=== PATIENT | male | born 1975 | race Caucasian/White ===

== ENCOUNTER 2020-05-30 13:29 | Emergency (ER) | payer OTHER, SELFPAY ==
[~2020-05-30] VITALS: Ht 182.9 cm; Wt 79.5 kg
[2020-05-30 13:40] VITALS: BP 137/67
[2020-05-30 13:51] LABS: BASOPHILS # (AUTO) 0.03 x10^3/uL (0-0.1); BASOPHILS % (AUTO) 0 % (0-1); EOSINOPHILS # (AUTO) 0.08 x10^3/uL (0-0.4); EOSINOPHILS % (AUTO) 1 % (1-7); LYMPHOCYTES # (AUTO) 1.99 x10^3/uL (1-3.4); LYMPHOCYTES % (AUTO) 20 % (22-44); MD NO; MEAN CORPUSCULAR HEMOGLOBIN 33.9 pg (27.5-34.5); MEAN CORPUSCULAR HGB CONC 34.2 g/dL (33.2-36.2); MEAN PLATELET VOLUME 8.1 fL (7.4-10.4); MONOCYTES # (AUTO) 0.75 x10^3/uL (0.2-0.8); MONOCYTES % (AUTO) 7 % (2-9); NEUTROPHILS # (AUTO) 7.33 x10^3/uL (1.8-6.8); NEUTROPHILS % (AUTO) 72 % (42-75); PLATELET COUNT 267 x10^3/uL (130-400); RED CELL DISTRIBUTION WIDTH 13.2 % (9.4-14.8)
[2020-05-30 14:03] LABS: ALANINE AMINOTRANSFERASE 25 U/L (12-78); ALBUMIN 3.6 g/dL (3.4-5.0); ANION GAP 6 mmol/L (5-15); CALCIUM 8.5 mg/dL (8.5-10.1); CHLORIDE 106 mmol/L (98-107); SALICYLATE LEVEL 4.9 mg/dL (2.8-20.0)
[2020-05-30 14:05] LABS: ALKALINE PHOSPHATASE 72 U/L (45-117); BILIRUBIN,TOTAL 0.6 mg/dL (0.2-1.0); TOTAL PROTEIN 7.2 g/dL (6.4-8.2)
[2020-05-30 14:18] LABS: AMPHETAMINE SCREEN, URINE Negative (Negative); BARBITURATE SCREEN, URINE Negative (Negative); BENZODIAZEPINE SCREEN, URINE Negative (Negative); CANNABINOID SCREEN, URINE Positive (Negative); OPIATE SCREEN, URINE Negative (Negative)
[2020-05-30 14:20] LABS: COCAINE SCREEN, URINE Negative (Negative); METHADONE SCREEN, URINE Negative (Negative)
--- NOTE | 2020-05-30 14:34 | NUR ---
BREAK RN: PT IN ROOM WATCHING TV. ROOM SECURE. ONE BAG LOCKED UP. SITTER AT DOOR. NO ACUTE DISTRESS NOTED. WILL CONTINUE TO MONITOR WHILE PRIMARY RN ERIC IS ON BREAK.
--- NOTE | 2020-05-30 15:15 | NUR ---
REPORT GIVEN TO PENELOPE REYES
--- NOTE | 2020-05-30 15:18 | NUR ---
PHCHY MACHINE SPECIALIST AT BEDSIDE.
== END 2020-05-30 15:56 | disposition home or self-care (01) ==
LOC: ED 13:43
DX: F22 Delusional disorders (principal); F17.210 Nicotine dependence, cigarettes, uncomplicated
CPT/HCPCS: 36415; 80053; 80307; 85025; 99284

== ENCOUNTER 2020-11-16 09:41 | Emergency (ER) | payer MEDICAID ==
[~2020-11-16] VITALS: Ht 175.3 cm; Wt 80.0 kg
[2020-11-16 09:53] VITALS: BP 145/89
--- NOTE | 2020-11-16 10:09 | NUR ---
DC FROM TRIAGE
== END 2020-11-16 10:14 | disposition home or self-care (01) ==
LOC: ED 10:06
DX: B85.1 Pediculosis due to Pediculus humanus corporis (principal)
CPT/HCPCS: 99283

== ENCOUNTER 2021-03-09 12:32 | Emergency (ER) | payer MEDICAID ==
[~2021-03-09] VITALS: Ht 182.9 cm; Wt 75.1 kg
[2021-03-09] MEDS ORDERED: LIDOCAINE 1%, 10ML INFIL ONE (13:00)
--- NOTE | 2021-03-09 15:45 | NUR ---
PT WALKED BACK TO ROOM WITH NO ASSISTANCE
[2021-03-09] MEDS ORDERED: LIDOCAINE-MPF 1%, 5ML ONE (16:01)
--- NOTE | 2021-03-09 16:19 | NUR ---
LIDO GIVEN TO PA
--- NOTE | 2021-03-09 16:50 | NUR ---
PA AT BEDSIDE
--- NOTE | 2021-03-09 17:07 | NUR ---
HOSPITAL SUPERINTENDENT: PT TO ROOM FROM LOBBY
--- NOTE | 2021-03-09 17:32 | NUR ---
Patient given discharge instructions and they have confirmed that they understand the instructions. Patient ambulatory with steady gait.
[2021-03-09 17:33] VITALS: BP 127/79
== END 2021-03-09 17:36 | disposition home or self-care (01) ==
LOC: ED 17:30
DX: L03.012 Cellulitis of left finger (principal)
CPT/HCPCS: 10060; 99284